=== PATIENT | male | born 1940 | race Caucasian/White ===

== ENCOUNTER 2022-04-15 06:51 | Day surgery (SDC) | payer BC ==
[2022-04-08 13:38] VITALS: BMI 31.3
[2022-04-15] MEDS ORDERED: TETRACAINE 0.5% OPHTH SOLN 2 ML BOTTLE ONE (07:13)
[2022-04-15] MEDS ORDERED: EPINEPHrine/PF 1 MG/1 ML (1:1,000) AMPULE ONE (07:13)
[2022-04-15] MEDS ORDERED: PHENYLEPHRINE/KETOROLAC 4 ML VIAL IO ONE (07:13)
[2022-04-15] MEDS ORDERED: BSS (NA/CA/MG/K) BALANCED SALT SOLUTION OPHTH SOLN 15 ML BOTTLE ONE (07:13)
[2022-04-15] MEDS ORDERED: LIDOCAINE HCL/PF 1% SDV 5ML VIAL ONE (07:13)
[2022-04-15] MEDS ORDERED: NEO/POLYMYX B SULF/DEXAMETH OPHTHALMIC 5ML BOTTLE ONE (07:14)
[2022-04-15] MEDS ORDERED: ACETYLCHOLINE 1:100 INTRA-OCUL 20 MG/2 ML KIT ONE (07:14)
[2022-04-15] MEDS ORDERED: CARBACHOL 0.01% INTRA-OCULAR 1.5 ML VIAL ONE (07:14)
[2022-04-15] MEDS: PHENYLEPHRINE 2.5% OPHTH SOLN 15 ML BOTTLE ONE ×3 (07:15→07:25)
[2022-04-15] MEDS: CIPROFLOXACIN 0.3% EYE DROPS 5 ML BOTTLE ONE ×3 (07:15→07:25)
[2022-04-15] MEDS: CYCLOPENTOLATE 2% OPHTH SOLN 2 ML BOTTLE ONE ×3 (07:15→07:25)
[2022-04-15] MEDS: TROPICAMIDE 1% OPHTH SOLN 15 ML BOTTLE ONE ×3 (07:15→07:25)
[2022-04-15] MEDS ORDERED: MIDAZOLAM HCL 2 MG/2 ML SINGLE DOSE VIAL ONE (08:43)
[2022-04-15 09:14] VITALS: RESP 18
[2022-04-15 09:34] VITALS: BP 113/57; PULSE 66; TEMP 97
== END 2022-04-15 10:10 | disposition home or self-care (01) ==
LOC: FASU 06:51
PROVIDERS: ATTEND Ophthalmology
PROC: 08RJ3JZ Replacement of Right Lens with Synthetic Substitute, Percutaneous Approach (ICD-10-PCS; principal; 2022-04-15 08:45)
DX: H26.8 Other specified cataract (principal)
CPT/HCPCS: 82962; J1097